=== PATIENT | male | born 1945 | race Caucasian/White ===

== ENCOUNTER 2019-10-31 05:47 | Day surgery (SDC) | payer MEDICARE, OTHER ==
[2019-10-31] VITALS (8 sets, daily range): BP systolic 114–135; BP diastolic 63–90; PULSE 63–88; TEMP 97.4–97.5
[~2019-10-31] VITALS: Ht 182.9 cm; Wt 92.3 kg
--- NOTE | 2019-10-31 09:30 | NUR ---
Returns to room 7 per cart from PACU and is awake and alert. Temp 97.5 and room air sats 96%. Lozoya set dressing x3 on abdomen dry. Abdomen soft and flat. IV fluids infusing and site is free of redness. Siderails up x2 and call light in reach. Allowed to rest and denies pain or nausea.
--- NOTE | 2019-10-31 09:45 | NUR ---
Drinking water and spouse at bedside. Temp 96%. Continues to deny pain or nausea.
--- NOTE | 2019-10-31 10:00 | NUR ---
Room air sats 96%. Resting and denies pain or nausea.
--- NOTE | 2019-10-31 10:15 | NUR ---
Talking with spouse and continues to deny pain or nausea.
[2019-10-31] MEDS ORDERED: ULTRAM 50MG TAB50 MG PO (10:21)
--- NOTE | 2019-10-31 10:30 | NUR ---
Continues to rest and deny pain or nausea.
--- NOTE | 2019-10-31 10:45 | NUR ---
Eating muffin and drinking coffee.
--- NOTE | 2019-10-31 11:00 | NUR ---
Assisted up to the bathroom. Gait is steady. Able to void and returns to room.
--- NOTE | 2019-10-31 11:10 | NUR ---
Dresses self and spouse at bedside. Continues to deny pain or nausea.
--- NOTE | 2019-10-31 11:20 | NUR ---
Dismissal instructions given and signed. Provided script for Ultram. Instructed the patient he may also take Motrin and Tylenol q6hr prn if needed. IV discontinued and site is free of redness.
--- NOTE | 2019-10-31 11:29 | NUR ---
Patient dismissed to home driven by spouse and taken to the front door per wheelchair and assisted into vehicle with dismissal instructions in hand.
== END 2019-10-31 11:29 | disposition home or self-care (01) ==
LOC: SDCO 05:47
DX: K40.90 Unilateral inguinal hernia, without obstruction or gangrene, not specified as recurrent (principal); D17.6 Benign lipomatous neoplasm of spermatic cord; Z20.828 Contact with and (suspected) exposure to other viral communicable diseases; E78.5 Hyperlipidemia, unspecified; Z98.52 Vasectomy status; Z85.828 Personal history of other malignant neoplasm of skin
CPT/HCPCS: C1781; J0690; J1100; J1885; J2405; J2704; J3010; J7120